=== PATIENT | male | born 1950 | race Caucasian/White ===

== ENCOUNTER 2018-11-20 13:35 | Outpatient (CLI) | payer MEDICARE | END 2018-11-20 13:36 | disposition home or self-care (01) | LOC: CTENTCT 13:35 | PROVIDERS: ATTEND Otolaryngology Plastic Surgery within the Head & Neck | DX: J32.9 Chronic sinusitis, unspecified (principal); B49 Unspecified mycosis | CPT/HCPCS: 70486 ==